=== PATIENT | female | born 1990 | race Caucasian/White ===

== ENCOUNTER 2018-05-19 20:20 | Emergency (ER) | payer BC ==
[~2018-05-19] VITALS: Ht 167.6 cm; Wt 127.0 kg
[2018-05-19] MEDS ORDERED: SODIUM CHLORIDE 0.9% 1000ML 2,000 ML ONE (20:54)
[2018-05-19] MEDS ORDERED: PANTOPRAZOLE 40 MG 10ML VIAL IV STA (20:59)
[2018-05-19] MEDS ORDERED: SODIUM CHLORIDE 0.9% 1000ML 2,000 ML IV SCH (21:00)
[2018-05-19 21:05] LABS: BASOPHILS # (AUTO) 0.1 (0.0-0.1); BASOPHILS % 0.3 % (0.0-1.0); EOSINOPHILS % 0.1 % (0.0-6.0); HEMATOCRIT 38.4 % (34.2-44.1); HEMOGLOBIN 12.7 g/dL (12.0-16.0); LYMPHOCYTES # (AUTO) 3.6 (1.0-3.2); LYMPHOCYTES % 10.8 % (18.0-39.1); MEAN CORPUSCULAR HEMOGLOBIN 28.6 pg (28-32); MEAN CORPUSCULAR HGB CONC 33.1 g/dL (31-35); MEAN CORPUSCULAR VOLUME 86.5 fL (81-99); MONOCYTES # (AUTO) 1.8 (0.2-0.8); MONOCYTES % 5.3 % (4.4-11.3); NEUTROPHILS # (AUTO) 27.4 (2.1-6.9); NEUTROPHILS % 82.8 % (38.7-80.0); PLATELET COUNT 430 x10e3/uL (140-360); RED BLOOD COUNT 4.44 x10e6/uL (3.6-5.1); RED CELL DISTRIBUTION WIDTH 13.3 % (11.7-14.4)
[2018-05-19 21:09] LABS: INR 1.1; PROTHROMBIN TIME 13.4 seconds (11.9-14.5)
[2018-05-19 21:17] LABS: PARTIAL THROMBOPLASTIN TIME 22.4 seconds (23.8-35.5)
[2018-05-19 21:20] LABS: ALANINE AMINOTRANSFERASE 17 IU/L (0-55); ALBUMIN 3.7 g/dL (3.5-5.0); ALBUMIN/GLOBULIN RATIO 1.1 (0.8-2.0); ALKALINE PHOSPHATASE 74 IU/L (40-150); AMYLASE 45 U/L (25-125); ANION GAP 15.5 mmol/L (8-16); BLOOD UREA NITROGEN 14 mg/dL (7-26); BUN/CREATININE RATIO 18 (6-25); CALCIUM 9.1 mg/dL (8.4-10.2); CARBON DIOXIDE 20 mmol/L (22-29); CHLORIDE 106 mmol/L (98-107); CREATINE KINASE 126 IU/L (29-168); CREATININE, SERUM 0.77 mg/dL (0.57-1.11); EST GLOMERULAR FILTRATION RATE > 60 ML/MIN (60-); GLUCOSE 113 mg/dL (74-118); LIPASE 20 U/L (8-78); POTASSIUM 3.5 mmol/L (3.5-5.1); SODIUM 138 mmol/L (136-145)
--- NOTE | 2018-05-19 21:54 | Diagnostic Imaging Report ---
EXAM: CT CHEST W, CT ABDOMEN/PELVIS W INDICATION: \S\trauma COMPARISON: None. TECHNIQUE: Chest, abdomen and pelvis were scanned utilizing a multidetector helical scanner from the lung apex to the pubic symphysis. Coronal and sagittal reformations were obtained IV CONTRAST: 100 mL Isovue 300/370 FINDINGS: LINES and TUBES: None. LUNGS/AIRWAYS/PLEURA: No contusion or consolidation.. The pleural spaces are clear. HEART AND MEDIASTINUM: Mild anterior mediastinal soft tissue likely thymus. No mediastinal or periaortic hematoma. The heart is normal in size.. There is no pericardial effusion. HEPATOBILIARY/GALLBLADDER: Punctate too small to characterize liver hypodensities. Otherwise unremarkable. No laceration. SPLEEN: No laceration or hematoma. PANCREAS: No laceration or hematoma. ADRENALS: No nodules. KIDNEYS/URETERS: No laceration or hematoma. No hydronephrosis. GI TRACT: No obstruction or wall thickening. Normal appendix. PELVIC ORGANS/BLADDER: Unremarkable. Incidental left corpus luteum. LYMPH NODES: No lymphadenopathy. VESSELS: Unremarkable. PERITONEUM / RETROPERITONEUM: No free air or fluid. BONES/SOFT TISSUES: No acute bony findings. There is a large superficial hematoma/contusion within the anterior abdominal wall soft tissues/subcutaneous fat. Overlying skin thickening. No active extravasation. IMPRESSION: 1. No acute internal traumatic injury of the chest, abdomen or pelvis. 2. Large superficial hematoma/contusion within the anterior abdominal wall soft tissues. No active extravasation. Signed by: Dr Ibis Desir MD on 05/19/2018 9:50 PM
[2018-05-19] MEDS ORDERED: SODIUM CHLORIDE 0.9% 50ML 50 ML ONE (22:01)
[2018-05-19] MEDS ORDERED: IOPAMIDOL 370 MG/ML 200 ML INFUS..BTL INJ ONE (22:02)
[2018-05-19 22:04] LABS: LYMPHOCYTES % (MANUAL) 6 % (19-48); MONOCYTES % (MANUAL) 6 % (3.4-9.0); NEUTROPHILS % (MANUAL) 87 % (40-74); PLATELET ESTIMATE SLIGHTLY INCREASED; PLATELET MORPHOLOGY COMMENT NORMAL; RBC MORPHOLOGY COMMENT NORMAL
[2018-05-19 22:41] VITALS: BP 110/63
== END 2018-05-19 22:03 | disposition other institution (70) ==
LOC: ER 20:20
DX: R10.84 Generalized abdominal pain (principal); S30.1XXA Contusion of abdominal wall, initial encounter; I95.9 Hypotension, unspecified; V43.52XA Car driver injured in collision with other type car in traffic accident, initial encounter; Y92.488 Other paved roadways as the place of occurrence of the external cause
CPT/HCPCS: 36415; 71260; 74177; 80053; 82150; 82550; 82553; 83690; 83735; 84484; 84702; 85025; 85610; 85730; 86850; 86900; 86920; 86922; 93005; 99284; J7030; P9016; Q9967